=== PATIENT | female | born 1995 | race Caucasian/White ===

== ENCOUNTER 2018-12-10 10:08 | Emergency (ER) | payer OTHER ==
[2018-12-10 10:53] LABS: Absolute Lymphocytes (CBC) 1.3 K/uL (0.7-4.9); Absolute Monocytes 0.4 K/uL (0.1-1.3); Absolute Neutrophil 5.6 K/uL (1.8-8.0); Basophils % 0.4 % (0-1.3); Eosinophils % 0.7 % (0-4.4); Hematocrit 39.7 % (36.0-45.0); Lymphocytes % 17.8 % (15.3-44.8); MPV 9.2 fL (7.6-11.3); Monocytes % 4.9 % (3.3-12.3); RBC Red Blood Cell Count 4.73 M/uL (3.86-4.86)
[2018-12-10 10:57] LABS: Urine Blood TRACE (NEG); Urine Glucose NEGATIVE (NEG); Urine Protein NEGATIVE (NEG)
[2018-12-10] MEDS ORDERED: NA CHLORIDE 0.9% 1,000 ML ONE (10:57)
[2018-12-10] MEDS ORDERED: ONDANSETRON 4 MG/2 ML VIAL ONE (10:57)
[2018-12-10 11:14] LABS: ALT/SGPT 21 U/L (12-78); AST/SGOT 16 U/L (15-37); Albumin 3.6 g/dL (3.4-5.0); Alkaline Phosphatase 62 U/L (45-117); BUN Blood Urea Nitrogen 10 mg/dL (7-18); Bicarbonate 26 mmol/L (21-32); Bilirubin Direct 0.1 mg/dL (0-0.2); Bilirubin Total 0.3 mg/dL (0.2-1.0); Glucose Level 96 mg/dL (74-106); Lipase 111 U/L (73-393); Potassium 3.9 mmol/L (3.5-5.1); Protein, Total 7.2 g/dL (6.4-8.2); Sodium Level 141 mmol/L (136-145)
--- NOTE | 2018-12-10 12:09 | RAD REPORT ---
EXAM DESCRIPTION: CTAbdomen Pelvis W Contrast - 12/10/2018 11:56 am CLINICAL HISTORY: Abdominal pain. lower abdomen pain COMPARISON: No comparisons TECHNIQUE: Biphasic CT imaging of the abdomen and pelvis was performed with 100 ml non-ionic IV cont rast. All CT scans are performed using dose optimization technique as appropriate and may include automated exposure control or mA/KV adjustment according to patient size. FINDINGS: The lung bases are clear. The liver, spleen, pancreas, adrenal glands and kidneys are within normal limits. No bowel obstruction, free air, free fluid or abscess. The appendix is normal. No evidence of signi ficant lymphadenopathy. No suspicious bony findings. Trace pelvic free fluid is seen with possible with recent left-sided cys t rupture findings seen. IMPRESSION: No acute intra-abdominal or pelvic finding. Recent left-sided ovarian cyst rupture is possible.
--- NOTE | 2018-12-10 12:53 | EDPHYS ---
Physician Documentation [facility] Name: Nadine Sood Age: 23 yrs Sex: Female : 1995 Arrival Date: 12/10/2018 Time: 10:12 Bed 18 Private MD: ED Physician Milton Quesada HPI: 12/10 10:39 This 23 yrs old Female presents to ER via Ambulatory with complaints of cp Abdominal Pain. 10:40 The patient presents with abdominal pain in the lower abdomen. Onset: The cp symptoms/episode began/occurred last night. 10:40 The symptoms do not radiate. Associated signs and symptoms: Pertinent positives: cp nausea, Pertinent negatives: blood in stools, constipation, diarrhea, dysuria, fever, vaginal discharge, vomiting. The symptoms are described as crampy. Severity of pain: in the emergency department the pain is a 5 / 10. 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 - Social history:: Smoking status: Patient/guardian denies using tobacco, Patient/guardian denies using alcohol. - Ebola Screening: : Patient negative for fever greater than or equal to 101.5 degrees Fahrenheit, and additional compatible Ebola Virus Disease symptoms Patient denies exposure to infectious person Patient denies travel to an Ebola-affected area in the 21 days before illness onset. ROS: 10:45 Constitutional: Negative for body aches, chills, fever, poor PO intake. cp 10:45 Eyes: Negative for injury, pain, redness, and discharge. cp 10:45 ENT: Negative for drainage from ear(s), ear pain, sore throat, difficulty swallowing, difficulty handling secretions. 10:45 Cardiovascular: Negative for chest pain, palpitations. 10:45 Respiratory: Negative for cough, shortness of breath, wheezing. 10:45 Abdomen/GI: Positive for abdominal pain, nausea, Negative for vomiting, diarrhea, constipation, black/tarry stool, rectal bleeding. 10:45 Back: Negative for pain at rest, pain with movement, radiated pain. 10:45 : Negative for urinary symptoms, vaginal bleeding, vaginal discharge. 10:45 Skin: Negative for rash. 10:45 All other systems are negative. Exam: 10:50 Constitutional: The patient appears in no acute distress, alert, awake, non-toxic, well cp developed, well nourished. 10:50 Head/Face: Normocephalic, atraumatic. cp 10:50 Eyes: Periorbital structures: appear normal, Conjunctiva: normal, no exudate, no cp injection, Sclera: no appreciated abnormality, Lids and lashes: appear normal, bilaterally. 10:50 ENT: External ear(s): are unremarkable, Nose: is normal, Mouth: Lips: moist, Oral cp mucosa: pink and intact, moist, Posterior pharynx: is normal, airway is patent, no erythema, no exudate. 10:50 Chest/axilla: Inspection: normal. 10:50 Cardiovascular: Rate: normal, Rhythm: regular. 10:50 Respiratory: the patient does not display signs of respiratory distress, Respirations: normal, no use of accessory muscles, no retractions, no splinting, no tachypnea, labored breathing, is not present. 10:50 Abdomen/GI: Inspection: abdomen appears normal, Bowel sounds: active, all quadrants, Palpation: soft, in all quadrants, moderate abdominal tenderness, in the umbilical area, right lower quadrant and left lower quadrant, rebound tenderness, is not appreciated, involuntary guarding, is not appreciated. 10:50 Back: pain, is absent, ROM is normal. Vital Signs: 10:24 BP 125 / 67; Pulse 75; Resp 18; Temp 98.4(O); Pulse Ox 100% on R/A; Weight 63.5 kg; hj Height 5 ft. 5 in. (165.10 cm); Pain 6/10; 11:58 BP 126 / 69; Pulse 76; Resp 18; Pulse Ox 100% on R/A; hj 13:04 BP 110 / 72; Pulse 72; Resp 18; Pulse Ox 100% on R/A; hj 10:24 Body Mass Index 23.30 (63.50 kg, 165.10 cm) MDM: 10:25 Patient medically screened. cp 12:51 Data reviewed: vital signs, nurses notes, lab test result(s), radiologic studies, CT cp scan, and as a result, I will discharge patient. 12/10 10:32 Order name: Basic Metabolic Panel; Complete Time: 11:17 cp 12/10 11:17 Interpretation: Normal except: CL 108. cp 12/10 10:32 Order name: CBC with Diff; Complete Time: 10:57 cp 12/10 10:57 Interpretation: Normal except: JAMA% 76.2. cp 12/10 10:32 Order name: Creatinine for Radiology; Complete Time: 11:17 cp 12/10 10:32 Order name: Hepatic Function; Complete Time: 11:17 cp 12/10 11:17 Interpretation: Normal except: GLOB 3.6; A/G 1.0. cp 12/10 10:32 Order name: Lipase; Complete Time: 11:17 cp 12/10 10:33 Order name: Urine Dipstick--Ancillary (enter results); Complete Time: 10:59 ms 12/10 11:00 Interpretation: Normal except: UBLD TRACE. cp 12/10 10:32 Order name: IV Saline Lock; Complete Time: 10:45 cp 12/10 10:32 Order name: Labs collected and sent; Complete Time: 10:46 cp 12/10 10:32 Order name: Urine Dipstick-Ancillary (obtain specimen); Complete Time: 10:33 cp 12/10 10:33 Order name: Urine --Ancillary (enter results); Complete Time: 10:59 ms 12/10 10:59 Order name: CT Abd/Pelvis - W/Contrast: no oral contrast cp 12/10 12:46 Order name: CT EDMS 12/10 10:32 Order name: Urine Test (obtain specimen); Complete Time: 10:33 cp 12/10 12:46 Order name: PO challenge; Complete Time: 12:48 cp Administered Medications: 10:45 Drug: NS 0.9% 1000 ml Route: IV; Rate: 1 bolus; Site: right antecubital; hj 11:23 Follow up: IV Status: Completed infusion; IV Intake: 1000ml 10:45 Drug: Zofran 4 mg Route: IVP; Site: right antecubital; hj 11:00 Follow up: Response: No adverse reaction; Nausea is decreased hj Disposition: 13:07 Co-signature as Attending Physician, Milton Quesada MD I agree with the assessment and kdr plan of care. Disposition: 12/10/18 12:52 Discharged to Home. Impression: Lower abdominal pain, unspecified. - Condition is Stable. - Discharge Instructions: Abdominal Pain, Adult. - Prescriptions for Ibuprofen 800 mg Oral Tablet - take 1 tablet by ORAL route every 8 hours As needed take with food; 30 tablet. Zofran 4 mg Oral Tablet - take 1 tablet by ORAL route every 12 hours As needed; 20 tablet. - Medication Reconciliation Form, Thank You Letter, Antibiotic Education, Prescription Opioid Use form. - Follow up: Private Physician; When: 1 - 2 days; Reason: Worsening of condition. - Problem is new. - Symptoms have improved. Signatures: Dispatcher [employer] EDMS Milton Quesada MD MD kdr Finesse Ortez RN RN Julian Leal PA PA cp Corrections: (The following items were deleted from the chart) 13:05 12:52 12/10/2018 12:52 Discharged to Home. Impression: Lower abdominal pain, hj unspecified. Condition is Stable. Forms are Medication Reconciliation Form, Thank You Letter, Antibiotic Education, Prescription Opioid Use. Follow up: Private Physician; When: 1 - 2 days; Reason: Worsening of condition. Problem is new. Symptoms have improved. cp
--- NOTE | 2018-12-10 12:53 | ER ---
Nurse's Notes [facility] Name: Nadine Sood Age: 23 yrs Sex: Female : 1995 Arrival Date: 12/10/2018 Time: 10:12 Bed 18 Private MD: Diagnosis: Lower abdominal pain, unspecified Presentation: 12/10 10:21 Presenting complaint: Patient states: i had this abdominal cramps, pain that started hj last night, across my belly, pain now is 5/10; reports nausea, denies vomiting; denies diarrhea or constipation; denies fever and chills;. Transition of care: patient was not received from another setting of care. Onset of symptoms was December 10, 2018. Risk Assessment: Do you want to hurt yourself or someone else? Patient reports no desire to harm self or others. Initial Sepsis Screen: Does the patient meet any 2 criteria? No. Patient's initial sepsis screen is negative. Does the patient have a suspected source of infection? No. Patient's initial sepsis screen is negative. Care prior to arrival: None. 10:21 Method Of Arrival: Ambulatory 10:21 Acuity: JOYCE 3 Triage Assessment: 10:27 General: Appears in no apparent distress. uncomfortable, Behavior is calm, cooperative, hj appropriate for age. Pain: Complains of pain in abdomen. GI: Reports lower abdominal pain, nausea. 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 - Social history:: Smoking status: Patient/guardian denies using tobacco, Patient/guardian denies using alcohol. - Ebola Screening: : Patient negative for fever greater than or equal to 101.5 degrees Fahrenheit, and additional compatible Ebola Virus Disease symptoms Patient denies exposure to infectious person Patient denies travel to an Ebola-affected area in the 21 days before illness onset. Screenin:27 Abuse screen: Denies threats or abuse. Denies injuries from another. Nutritional hj screening: No deficits noted. Tuberculosis screening: No symptoms or risk factors identified. Fall Risk None identified. Assessment: 10:27 GI: Bowel sounds present X 4 quads. Abd is soft. hj 10:28 General: Appears in no apparent distress. uncomfortable, Behavior is calm, cooperative, hj appropriate for age. Pain: Complains of pain in abdomen. Neuro: Level of Consciousness is awake, alert, obeys commands, Oriented to person, place, time, situation, Appropriate for age. Cardiovascular: Capillary refill < 3 seconds Patient's skin is warm and dry. Respiratory: Airway is patent Respiratory effort is even, unlabored, Respiratory pattern is regular, symmetrical. : No signs and/or symptoms were reported regarding the genitourinary system. EENT: No signs and/or symptoms were reported regarding the EENT system. Derm: No signs and/or symptoms reported regarding the dermatologic system. Musculoskeletal: No signs and/or symptoms reported regarding the musculoskeletal system. 10:30 Reassessment: provider in room for eval; family in room;. hj 11:57 Reassessment: Patient and/or family updated on plan of care and expected duration. Pain hj level reassessed. Patient is alert, oriented x 3, equal unlabored respirations, skin warm/dry/pink. wheeled to CT:. Vital Signs: 10:24 BP 125 / 67; Pulse 75; Resp 18; Temp 98.4(O); Pulse Ox 100% on R/A; Weight 63.5 kg; hj Height 5 ft. 5 in. (165.10 cm); Pain 6/10; 11:58 BP 126 / 69; Pulse 76; Resp 18; Pulse Ox 100% on R/A; hj 13:04 BP 110 / 72; Pulse 72; Resp 18; Pulse Ox 100% on R/A; hj 10:24 Body Mass Index 23.30 (63.50 kg, 165.10 cm) hj ED Course: 10:12 Patient arrived in ED. rg4 10:15 Julian Clement PA is PHCP. cp 10:15 Milton Quesada MD is Attending Physician. cp 10:21 Finesse Ortez RN is Primary Nurse. hj 10:23 Triage completed. hj 10:27 Arm band placed on. hj 10:27 Patient has correct armband on for positive identification. Placed in gown. Bed in low hj position. Call light in reach. Side rails up X 1. Adult w/ patient. 10:47 Initial lab(s) drawn, by me, sent to lab. Inserted saline lock: 20 gauge in right em1 antecubital area, using aseptic technique. Blood collected. 13:04 No provider procedures requiring assistance completed. IV discontinued, intact, hj bleeding controlled, No redness/swelling at site. Pressure dressing applied. Administered Medications: 10:45 Drug: NS 0.9% 1000 ml Route: IV; Rate: 1 bolus; Site: right antecubital; hj 11:23 Follow up: IV Status: Completed infusion; IV Intake: 1000ml hj 10:45 Drug: Zofran 4 mg Route: IVP; Site: right antecubital; hj 11:00 Follow up: Response: No adverse reaction; Nausea is decreased hj Intake: 11:23 IV: 1000ml; Total: 1000ml. hj Outcome: 12:52 Discharge ordered by MD. kwabena 13:04 Discharged to home ambulatory, with family. hj 13:04 Condition: stable 13:04 Discharge instructions given to patient, family, Instructed on discharge instructions, follow up and referral plans. medication usage, Demonstrated understanding of instructions, follow-up care, medications, Prescriptions given X 2. 13:05 Patient left the ED. Signatures: Canelo Ha em1 Finesse Ortez RN RN hj Julian Clement PA PA cp Garcia, Rubi rg4
--- OUTSIDE RECORDS SUMMARY | 2018-12-10 14:38 | XMS REPORT | Continuity of Care Document ---
:1995 Author Organization Interface Problems Problem Status Onset Date Classification Date Comments Source Reported Medications Medication Details Route Status Patient Ordering Order Source Instructions Provider Date Terbinafine 1 appl, Active hydrochloride 10 TOP, BID, X 019 Medical MG/ML Topical 7 day, # 30 Group Cream gm, 0 Refill(s), [id number] {7 (Ethinyl 1 tab, PO, Active MH Estradiol 0.035 Daily, # 28 018 Medical MG / tab, 0 Group norgestimate Refill(s), 0.18 MG Oral Pharmacy: Tablet) / [facility] Estradiol 0.035 MG / norgestimate 0.215 MG Oral Tablet) / 7 (Ethinyl Estradiol 0.035 MG / norgestimate 0.25 MG Oral Tablet) / 7 (Inert Ingredients 1 MG Oral Tablet) } Pack [Tr Azithromycin 5 See Active Day Dose Pack Instruction 018 Medical 250 mg oral s, Take 2 Group tablet tablets by mouth the first day then 1 tablet by mouth days 2-5., X 5 day, # 6 tab, 0 Refill(s), Pharmacy: [facility] [place] Fluticasone 2 spray, Active propionate 0.05 NASAL, 018 Medical MG/ACTUAT Daily, in Group Metered Dose each Nasal Hooks nostril, # [Flonase] 16 gm, 1 Refill(s), Pharmacy: [facility] [place] Retinol See Active Instruction 018 Medical s, use as Group directed on bottle, 0 Refill(s) Ibuprofen 200 MG 600 mg=3 Active Oral Tablet tab, PO, 018 Medical Q6H, prn Group pain and/or fever, 0 Refill(s) Amoxicillin 500 1 tab, PO, No Longer MG / Clavulanate Q12H, X 10 Active 018 Medical 125 MG Oral day, # 20 Group Tablet tab, 0 [Augmentin Refill(s), 500-mg] Pharmacy: [facility] [place] Fink 1 tab, PO, Active Daily, 0 018 Medical Refill(s) Group Allergies, Adverse Reactions, Alerts Substance Category Reaction Severity Reaction Status Date Comments Source type Reported sulfa drugs Assertion Drug Active allergy Medical Group tetracycline Assertion MO^Modera Drug Active topical te allergy Medical Group Immunizations Immunization Date Given Site Status Last Updated Comments Source Results Order Results Value Reference Date Interpretation Comments Source Name Range Vital Signs Vital Sign Value Date Comments Source Systolic (mm Hg) 134 11/13/2018 Medical Group Diastolic (mm Hg) 91 11/13/2018 [facility] Temperature Oral (F) 98.2 F 11/13/2018 Medical Group Heart Rate 87 11/13/2018 Medical Group Weight 62.472 11/13/2018 Medical Group Weight 65 02/09/2018 Medical Group Systolic (mm Hg) 110 02/09/2018 Medical Group Diastolic (mm Hg) 63 02/09/2018 Medical Group Temperature Oral (F) 98.6 F 02/09/2018 Medical Group Heart Rate 73 02/09/2018 Medical Group Weight 61.364 10/27/2017 Medical Group BMI Calculated 22.51 10/27/2017 Medical Group Height 165.1 cm 10/27/2017 Medical Group Temperature Oral (F) 98.2 F 10/27/2017 Medical Group Systolic (mm Hg) 115 10/27/2017 Medical Group Diastolic (mm Hg) 73 10/27/2017 Medical Group Heart Rate 75 10/27/2017 Medical Group Temperature Oral (F) 98.4 F 10/21/2017 Medical Group Heart Rate 88 10/21/2017 Medical Group Systolic (mm Hg) 120 10/21/2017 Medical Group Diastolic (mm Hg) 74 10/21/2017 Medical Group Height 165.1 cm 10/21/2017 Medical Group Weight 62.273 10/21/2017 Medical Group BMI Calculated 22.85 10/21/2017 Medical Group Weight 60.227 08/20/2017 Medical Group Heart Rate 90 08/20/2017 Medical Group Temperature Oral (F) 98.0 F 08/20/2017 Medical Group Systolic (mm Hg) 106 08/20/2017 Medical Group Diastolic (mm Hg) 73 08/20/2017 Medical Group Encounters Location Location Encounter Encounter Reason Attending ADM DC Status Source Details Type Number For Provider Date Date Visit Outpatient [id number] TYRONE08/20 [facility] [place] [facility] Outpatient [id number] [place] 08/20 08/21 [facility] Alex /2017 [facility] [place] Outpatient [id number] TYRONE10/21 [facility] [id number] [place] 10/21 10/22 [facility] Alex /2017 [facility] [place] Outpatient [id number] TYRONE 10/27 [facility] [facility] Out[facility] [id number] [place] 10/27 [facility] Out[facility] [id number] NURSE VISIT 02/09 [facility] [id number] NURSE VISIT 02/09 02/10 [facility] /2017 [facility] [place] [facility] Phone [id number] 02/16 02/18 [facility] /2017 [facility] [place]patient [id number] [place] 11/13 [facility] [place] [facility] [id number] [place] 11/13 11/14 [facility] [place] /2018 [facility] [place] Outpatient [id number] [place] 11/27 [facility] [place] [facility] [id number] [place] 11/27 11/27 [facility] [place] /2018 [facility] [place] Procedures Procedure Code Date Perfomer Comments Source Removal<sup>1</s [id number] breast tumor Medical up> 2013 Group
--- OUTSIDE RECORDS SUMMARY | 2018-12-10 14:39 | XMS REPORT | Summary of Care ---
:1995 Author Organization [facility] Address [address] [place] [address]- Encounter HQ Alvaro(FIN) [id number] Date(s): 10/27/17 - 10/27/17 [facility] [address] [place] [phone] Discharge Disposition: Home or Self Care Attending Physician: Angela Johnson DO Vital Signs Most recent to oldest [Reference Range]: 1 Height 165.1 cm (10/27/17 3:10 PM) Temperature Oral [96.4-99.1 DegF] 98.2 DegF (10/27/17 3:10 PM) Blood Pressure [90-140/60-90 mmHg] 115/73 mmHg (10/27/17 3:10 PM) Peripheral Pulse Rate [60-100 bpm] 75 bpm (10/27/17 3:10 PM) Weight 61.364 kg (10/27/17 3:10 PM) Body Mass Index 22.51 m2 (10/27/17 3:10 PM) Problem List No data available for this section Allergies, Adverse Reactions, Alerts Substance Reaction Severity Status sulfa drugs Active Medications Azithromycin 5 Day Dose Pack 250 mg oral tablet See Instructions, Take 2 tablets by mouth the first day then 1 tablet by mouth days 2-5., X 5 day, #6 tab, 0 Refill(s), Pharmacy: [facility] Start Date: 10/27/17 Stop Date: 11/01/17 Status: Ordered Results No data available for this section Immunizations No data available for this section Procedures Procedure Date Related Diagnosis Body Site Status Removal1 Completed 1breast tumor 2013 Social History Social History Type Response Smoking Status Never smoker; Exposure to Tobacco Smoke None; Cigarette Smoking Last 365 Days No; Reg Smoking Cessation Counseling No entered on: 10/27/17 Assessment and Plan No data available for this section
--- OUTSIDE RECORDS SUMMARY | 2018-12-10 14:39 | XMS REPORT | Summary of Care ---
:1995 Author Organization [facility] Address [address] [place] [address]- Encounter HQ Marenntr_gaby(FIN) [id number] Date(s): 02/16/18 - 02/17/18 [facility] [address] [place] [address] [phone] Vital Signs No data available for this section Problem List No data available for this section Allergies, Adverse Reactions, Alerts Substance Reaction Severity Status sulfa drugs Active Medications TriNessa oral tablet 1 tab, PO, Daily, # 28 tab, 0 Refill(s), Pharmacy: [facility]/pharmacy #[id number] Start Date: 02/17/18 Stop Date: 03/17/18 Status: Ordered Results No data available for [...]
--- OUTSIDE RECORDS SUMMARY | 2018-12-10 14:39 | XMS REPORT | Summary of Care ---
:1995 Author Organization [facility] Address [address] [place] [address]- Encounter HQ Encntr_alirobin(FIN) [id number] Date(s): 11/27/18 - 11/27/18 [facility] [address] 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 Vital Signs No data available for this section Problem List No data available for this section Allergies, Adverse Reactions, Alerts Substance Reaction Severity Status sulfa drugs Active tetracycline topical MO^Moderate Active Medications No data available for this section Results No data available for this section Immunizations No data available for this section Procedures Procedure Date Related Diagnosis Body Site Status Removal1 Completed 1breast tumor 2013 Social History Social History Type Response Smoking Status Never smoker; Exposure to Tobacco Smoke None; Cigarette Smoking Last 365 Days No; Reg Smoking Cessation Counseling No entered on: 11/13/18 Assessment and Plan No data available for this section
--- OUTSIDE RECORDS SUMMARY | 2018-12-10 14:39 | XMS REPORT | Summary of Care ---
:1995 Author Organization [facility] Address [address] [place] [address]- Encounter HQ Kiko_gaby(FIN) [id number] Date(s): 02/09/18 - 02/09/18 [facility] [address] [place] [address] [phone] Discharge Disposition: Home or Self Care Attending Physician: VISIT, NURSE [facility] Vital Signs Most recent to oldest [Reference Range]: 1 Temperature Oral [96.4-99.1 DegF] 98.6 DegF (02/09/18 10:42 AM) Blood Pressure [90-140/60-90 mmHg] 110/63 mmHg (02/09/18 10:42 AM) Peripheral Pulse Rate [60-100 bpm] 73 bpm (02/09/18 10:42 AM) Weight 65 kg (02/09/18 10:42 AM) Problem List No data available for this section Allergies, Adverse Reactions, Alerts Substance Reaction Severity Status sulfa drugs Active Medications No data available for this [...]
--- OUTSIDE RECORDS SUMMARY | 2018-12-10 14:39 | XMS REPORT | Summary of Care ---
:[address] [facility] Address [address] [place] [address]- Encounter HQ Alvaro(SABIHA) [id number] Date(s): 08/20/17 - 08/20/17 [facility] [address] [place] [phone] Discharge Disposition: Home or Self Care Attending Physician: Angela Johnson DO Vital Signs Most recent to oldest [Reference Range]: 1 Temperature Oral [96.4-99.1 DegF] 98.0 DegF (08/20/17 2:32 PM) Blood Pressure [90-140/60-90 mmHg] 106/73 mmHg (08/20/17 2:32 PM) Peripheral Pulse Rate [60-100 bpm] 90 bpm (08/20/17 2:32 PM) Weight 60.227 kg (08/20/17 2:32 PM) Problem List No data available for this section Allergies, Adverse Reactions, Alerts Substance Reaction Severity Status sulfa drugs Active Medications Augmentin 500 mg oral tablet 1 tab, PO, Q12H, X 10 day, # 20 tab, 0 Refill(s), Pharmacy: [facility] [place] Start Date: 08/20/17 Stop Date: 08/30/17 Status: CompletedTriNessa 1 tab, PO, Daily, 0 Refill(s) Start Date: 08/20/17 Status: Ordered Results No data available for [...]
--- OUTSIDE RECORDS SUMMARY | 2018-12-10 14:39 | XMS REPORT | Summary of Care ---
:1995 Author Organization [facility] Address [address] [place] [address] Encounter HQ Alvaro(FIN) [id number] Date(s): 10/21/17 - 10/21/17 [facility] [address] [place] [address] [phone] Discharge Disposition: Home or Self Care Attending Physician: Angela Johnson DO Vital Signs Most recent to oldest [Reference Range]: 1 Height 165.1 cm (10/21/17 2:30 PM) Temperature Oral [96.4-99.1 DegF] 98.4 DegF (10/21/17 2:30 PM) Blood Pressure [90-140/60-90 mmHg] 120/74 mmHg (10/21/17 2:30 PM) Peripheral Pulse Rate [60-100 bpm] 88 bpm (10/21/17 2:30 PM) Weight 62.273 kg (10/21/17 2:30 PM) Body Mass Index 22.85 m2 (10/21/17 2:30 PM) Problem List No data available for this section Allergies, Adverse Reactions, Alerts Substance Reaction Severity Status sulfa drugs Active Medications Flonase 0.05 mg/inh nasal spray 2 spray, NASAL, Daily, in each nostril, # 16 gm, 1 Refill(s), Pharmacy: [facility] [place] Start Date: 10/21/17 Status: Orderedibuprofen 200 mg oral tablet 600 mg=3 tab, PO, Q6H, prn pain and/or fever, 0 Refill(s) Start Date: 10/21/17 Status: OrderedRetinol See Instructions, use as directed on bottle, 0 Refill(s) Start Date: 10/21/17 Status: Ordered Results No data available for this section Immunizations No data available for this section Procedures Procedure Date Related Diagnosis Body Site Status Removal1 Completed 1breast tumor 2013 Social History Social History Type Response Smoking Status Never smoker; Exposure to Tobacco Smoke None; Cigarette Smoking Last 365 Days No; Reg Smoking Cessation Counseling No entered on: 10/21/17 Assessment and Plan No data available for this section
--- OUTSIDE RECORDS SUMMARY | 2018-12-10 14:39 | XMS REPORT | Summary of Care ---
:1995 Author Organization [facility] Address [address] [place] [address]- Encounter HQ Kiko_gaby(SABIHA) [id number] Date(s): 11/13/18 - 11/13/18 [facility] [address] [place] [id number]- [phone] Discharge Disposition: Home or Self Care Attending Physician: Yolanda Burnett IN[employer]O [employer]ER CLOTH Vital Signs Most recent to oldest [Reference Range]: 1 Temperature Oral [96.4-99.1 DegF] 98.2 DegF (11/13/18 1:26 PM) Blood Pressure [90-140/60-90 mmHg] 134/91 mmHg (11/13/18 1:26 PM) Peripheral Pulse Rate [60-100 bpm] 87 bpm (11/13/18 1:26 PM) Weight 62.472 kg (11/13/18 1:26 PM) Problem List No data available for this section Allergies, Adverse Reactions, Alerts Substance Reaction Severity Status sulfa drugs Active tetracycline topical MO^Moderate Active Medications terbinafine topical 1% cream 1 appl, TOP, BID, X 7 day, # 30 gm, 0 Refill(s), Pharmacy: [id number] Start Date: 11/13/18 Stop Date: 11/20/18 Status: Ordered Results No data available for [...]
--- OUTSIDE RECORDS SUMMARY | 2018-12-10 14:39 | XMS REPORT | Summary of Care ---
:1995 Author Organization [facility] Address [address] [place] [address]- Encounter HQ Alvaro(FIN) [id number] Date(s): 10/21/17 - 10/21/17 [facility] [address] [place] [address] [phone] Discharge Disposition: Home or Self Care Attending [...] nostril, # 16 gm, 1 Refill(s), Pharmacy: [facility] [place] Start Date: 10/21/17 Status: Orderedibuprofen 200 mg [...]
--- OUTSIDE RECORDS SUMMARY | 2018-12-10 14:39 | XMS REPORT | Summary of Care ---
:1995 Author Organization [facility] Address [address] [place] [address]- Encounter HQ Kiko_gaby(FIN) [id number] Date(s): 02/09/18 - 02/09/18 [facility] [address] [place] [place] [address] [phone] Discharge Disposition: Home or Self Care Attending [...]
== END 2018-12-10 13:05 | disposition home or self-care (01) ==
LOC: ER 10:08
DX: R10.30 Lower abdominal pain, unspecified (principal); Z88.2 Allergy status to sulfonamides; Z88.8 Allergy status to other drugs, medicaments and biological substances
CPT/HCPCS: 36415; 74177; 80048; 80076; 81003; 81025; 83690; 85025; 96361; 96374; 99284; J2405; J7030; Q9967

== ENCOUNTER 2019-02-05 21:33 | Emergency (ER) | payer OTHER ==
--- OUTSIDE RECORDS SUMMARY | 2019-02-05 21:35 | XMS REPORT | Continuity of Care Document ---
:1995 Author Organization [facility] Care Team Providers Name Role Phone [facility] Unavailable Unavailable Problems No Data Provided for This Section Medications Medication Details Route Status Patient Ordering Order Source Instructions Provider Date Terbinafine 1 appl, Active hydrochloride 10 TOP, BID, X 019 Medical MG/ML Topical 7 day, # 30 Group Cream gm, 0 Refill(s), [facility]: [id number] {7 (Ethinyl 1 tab, PO, Active Estradiol 0.035 Daily, # 28 018 Medical [...] day, # 6 tab, 0 Refill(s), Pharmacy: [facility] [place] Fluticasone 2 spray, Active propionate 0.05 NASAL, 018 Medical MG/ACTUAT Daily, in Group Metered Dose each Nasal [place] nostril, # [Flonase] 16 gm, 1 Refill(s), Pharmacy: [facility] [place] Retinol See Active Instruction 018 Medical s, [...] Tablet tab, 0 [Augmentin Refill(s), 500-mg] Pharmacy: [facility] [place] Fink 1 tab, PO, Active Daily, 0 018 Medical Refill(s) Group Allergies, Adverse Reactions, Alerts Substance Category Reaction Severity Reaction Status Date Comments Source type Reported sulfa drugs Assertion Drug Active allergy Medical Group tetracycline Assertion MO^Modera Drug Active topical te allergy Medical Group Immunizations No Data Provided for This Section Results No Data Provided for This Section Pathology Reports No Data Provided for This Section Diagnostic Reports No Data Provided for This Section Consultation Notes No Data Provided for This Section Discharge Summaries No Data Provided for This Section History and Physicals No Data Provided for This Section Vital Signs Vital Sign Value Date Comments [...] Number For Provider Date Date Visit Outpatient [id number] TYRONE 08/20 [facility] [place] [facility] Outpatient [id number] [place] 08/20 08[facility]21 [facility] [place] [facility] [id number] [place]ONE 10/21 [facility] [place] [facility] Outpatient [id number] [place] 10/21 10/22 [facility] [place] [facility] [id number] TYRONE 10/27 [facility] [place] [facility] Outpatient [id number] [place] 10/27 10/28 [facility] [place] Outpatient [id number] NURSE VISIT 02/09 [facility] [place] [facility] Outpatient [id number] NURSE VISIT 02/09 02/10 [facility] [place] [facility] Phone [id number] 02/16 02/18 [facility] [place] [id number] [place] 11/13 [facility] [place] [facility] Outpatient [id number] [place] 11/13 11/14 [facility] [place] [facility] [place] Outpatient [id number] [place] 11/27 [facility] [place] [facility] [id number] [place] 11/27 11/27 [facility]-Reg e [place] [facility] [place] Procedures Procedure Code Date Perfomer Comments Source Removal<sup>1</s [id number] breast tumor Medical up> 2012 Group Assessment and Plan No Data Provided for This Section Plan of Care No Data Provided for This Section Social History Social History Date Source Social History TypeResponse 11/13/2018 Medical Group Smoking Status Never smoker; Exposure to Tobacco Smoke None; Cigarette Smoking Last 365 Days No; Reg Smoking Cessation Counseling No entered on: 11/13/18 Family History No Data Provided for This Section Advance Directives No Data Provided for This Section Functional Status No Data Provided for This Section
[2019-02-05] MEDS ORDERED: ONDANSETRON 4 MG/2 ML VIAL ONE (22:05)
[2019-02-05] MEDS ORDERED: NA CHLORIDE 0.9% 1,000 ML ONE (22:05)
[2019-02-05] MEDS ORDERED: MORPHINE 4 MG/ML SYR ONE (22:05)
[2019-02-05 22:17] LABS: Absolute Lymphocytes (CBC) 2.6 K/uL (0.7-4.9); Basophils % 0.2 % (0-1.3); Lymphocytes % 17.8 % (15.3-44.8); MPV 9.2 fL (7.6-11.3); RBC Red Blood Cell Count 4.67 M/uL (3.86-4.86)
[2019-02-05 22:29] LABS: Albumin 3.9 g/dL (3.4-5.0); Bilirubin Direct 0.1 mg/dL (0-0.2); Bilirubin Total 0.4 mg/dL (0.2-1.0); Potassium 3.2 mmol/L (3.5-5.1); Protein, Total 7.7 g/dL (6.4-8.2)
[2019-02-05 23:40] LABS: Urine Blood TRACE (NEG); Urine Glucose NEGATIVE (NEG); Urine Protein NEGATIVE (NEG)
--- NOTE | 2019-02-06 00:26 | ER ---
Nurse's Notes [facility] Name: Nadine Sood Age: 23 yrs Sex: Female : 1995 Arrival Date: 02/05/2019 Time: 21:37 Bed 15 Private MD: Diagnosis: Hemorrhagic ovarian cyst Presentation: 02/05 21:36 Presenting complaint: Patient states: RLQ abdominal pain that started this morning, but aj1 got severe an hour and a half ago. Reports nausea. Denies V/D. Denies fever. Transition of care: patient was not received from another setting of care. Onset of symptoms was February 05, 2019. Risk Assessment: Do you want to hurt yourself or someone else? Patient reports no desire to harm self or others. Initial Sepsis Screen: Does the patient meet any 2 criteria? HR > 90 bpm. No. Patient's initial sepsis screen is negative. Does the patient have a suspected source of infection? Yes: Acute abdominal pain. Care prior to arrival: None. 21:36 Method Of Arrival: Wheelchair aj 21:36 Acuity: JOYCE 3 aj1 Triage Assessment: 21:38 General: Appears uncomfortable, Behavior is cooperative, anxious, crying. Pain: aj1 Complains of pain in right lower quadrant Pain currently is 10 out of 10 on a pain scale. Neuro: Level of Consciousness is awake, alert, obeys commands, Oriented to person, place, time, situation. Cardiovascular: Patient's skin is warm and dry. Respiratory: Airway is patent Respiratory effort is even, unlabored, Respiratory pattern is regular, symmetrical. GI: Reports lower abdominal pain, nausea, Patient currently denies diarrhea, vomiting. 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 - Social history:: Smoking status: Patient/guardian denies using tobacco. - Ebola Screening: : Patient denies travel to an Ebola-affected area in the 21 days before illness onset. - Family history:: not pertinent. - Hospitalizations: : No recent hospitalization is reported. Screenin:38 Abuse screen: Denies threats or abuse. Nutritional screening: No deficits noted. tr5 Tuberculosis screening: No symptoms or risk factors identified. Fall Risk None identified. No fall in past 12 months (0 pts). No secondary diagnosis (0 pts). IV access (20 points). Ambulatory Aid- None/Bed Rest/Nurse Assist (0 pts). Gait- Normal/Bed Rest/Wheelchair (0 pts) Mental Status- Oriented to own ability (0 pts). Total Parmar Fall Scale indicates No Risk (0-24 pts). Assessment: 21:38 General: Appears uncomfortable, Behavior is appropriate for age, crying. Pain: tr5 Complains of pain in right lower quadrant and left lower quadrant Pain currently is 9 out of 10 on a pain scale. Quality of pain is described as aching, crampy, Is continuous, Alleviated by nothing. Neuro: Level of Consciousness is awake, alert, obeys commands, Oriented to person, place, time, Pediatric Acute Care Unit Nurse are equal bilaterally Moves all extremities. Cardiovascular: Heart tones present Bruits absent Capillary refill < 3 seconds Pulses are all present. Edema is absent. Respiratory: Airway is patent Trachea midline Respiratory effort is even, unlabored, Respiratory pattern is regular, symmetrical, Breath sounds are clear bilaterally. GI: Bowel sounds present X 4 quads. Abdomen is tender to palpation in right lower quadrant and left lower quadrant. GI: Reports nausea. : No signs and/or symptoms were reported regarding the genitourinary system. EENT: No signs and/or symptoms were reported regarding the EENT system. Derm: Skin is intact, is healthy with good turgor, Skin is dry, Skin is pink, warm \T\ dry. Musculoskeletal: Capillary refill < 3 seconds, Range of motion: intact in all extremities. 22:30 Reassessment: Patient and/or family updated on plan of care and expected duration. Pain tr5 level reassessed. Patient is alert, oriented x 3, equal unlabored respirations, skin warm/dry/pink. Patient states symptoms have improved. 02/06 00:37 Reassessment: Patient is alert, oriented x 3, equal unlabored respirations, skin bb warm/dry/pink. pt states she is feeling better, IV site intact with no erythema or edema noted. Pt verbalized understanding of and agrees to plan of care discharge instructions given pt ambulated with steady gait to exit accompanied by spouse. 01:03 Reassessment: Patient appears in no apparent distress at this time. Patient is alert, tr5 oriented x 3, equal unlabored respirations, skin warm/dry/pink. Patient states feeling better. Vital Signs: 02/05 21:38 BP 94 / 79; Pulse 99; Resp 20; Temp 98.4; Pulse Ox 100% on R/A; Weight 61.23 kg (R); aj1 Height 5 ft. 5 in. (165.10 cm) (R); Pain 10/10; 22:30 BP 116 / 57; Pulse 75; Resp 16; Pulse Ox 100% on R/A; tr5 23:22 BP 117 / 81; Pulse 98; Resp 16; Pulse Ox 94% on R/A; tr5 02/06 00:38 BP 104 / 62; Pulse 99; Resp 16 S; Pulse Ox 98% on R/A; bb 01:03 BP 108 / 70; Pulse 87; Temp 99; Pulse Ox 100% on R/A; tr5 02/05 21:38 Body Mass Index 22.46 (61.23 kg, 165.10 cm) aj1 00:38 pt drinking ice water will check temp in 5 minutes bb ED Course: 02/05 21:37 Patient arrived in ED. mr 21:37 Triage completed. aj1 21:38 Arm band placed on Patient placed in an exam room. aj1 21:38 Patient has correct armband on for positive identification. Bed in low position. Call tr5 light in reach. 21:39 Santy Forman MD is Attending Physician. rn 21:43 Radiology exam delayed due to lab results not completed at this time. (BUN/Creatinine) vm2 test not completed at this time. 21:45 Royce Menon, AVRIL is Primary Nurse. tr5 21:45 Pulse ox on. NIBP on. Door closed. Noise minimized. Warm blanket given. tr5 21:50 Assisted to bathroom. tr5 21:54 Inserted saline lock: 20 gauge in left antecubital area, using aseptic technique. Blood jb5 collected. 21:55 Initial lab(s) drawn, by ED staff. tr5 22:00 Urine collected: clean catch specimen, clear. tr5 22:35 Awaiting lab results, Awaiting radiology results. tr5 22:[address] Scan. Patient moved to CT. tr5 22:45 CT completed. Patient tolerated procedure well. Patient moved back from CT. 22:53 Awaiting radiology results. tr5 22:56 CT Abd/Pelvis - IV Contrast Only In Process Unspecified. EDHI 02/06 01:04 No provider procedures requiring assistance completed. IV discontinued. tr5 Administered Medications: 02/05 22:05 Drug: morphine 4 mg Route: IVP; Site: left antecubital; tr5 22:05 Drug: Zofran 4 mg Route: IVP; Site: left antecubital; tr5 22:05 Drug: NS 0.9% 1000 ml Route: IV; Rate: 1000 ml; Site: left antecubital; tr5 02/06 00:36 Drug: [place] 10 mg-325 mg 1 tabs Route: PO; tr5 Outcome: 00:24 Discharge ordered by . rn 01:04 Discharged to home ambulatory. tr5 01:04 Condition: stable 01:04 Discharge instructions given to patient, Instructed on discharge instructions, follow up and referral plans. medication usage, Demonstrated understanding of instructions, follow-up care, medications, Prescriptions given X 1. 01:59 Patient left the ED. tr5 Signatures: Dispatcher [employer] EDHI Madison Valentino, RN RN david AlvarezaOksana DickDeepak Blanca Alarcon RN RN bb Nieto, Roman, MD MD rn Broussard, Jennifer jb5 McGuire, Victoria Royce Rock RN RN tr5 Corrections: (The following items were deleted from the chart) 02/05 22:32 12:38 Abuse screen: Denies threats or abuse. tr5 tr5 :32 12:38 Nutritional screening: No deficits noted. tr5 tr5 :32 12:38 Tuberculosis screening: No symptoms or risk factors identified. tr5 tr5 :32 12:38 Fall Risk None identified. No fall in past 12 months (0 pts). No secondary tr5 diagnosis (0 pts). IV access (20 points). Ambulatory Aid- None/Bed Rest/Nurse Assist (0 pts). Gait- Normal/Bed Rest/Wheelchair (0 pts) Mental Status- Oriented to own ability (0 pts). Total Parmar Fall Scale indicates No Risk (0-24 pts). tr5
--- NOTE | 2019-02-06 00:28 | EDPHYS ---
Physician Documentation [facility] Name: Nadine Sood Age: 23 yrs Sex: Female : 1995 Arrival Date: 02/05/2019 Time: 21:37 Bed 15 Private MD: ED Physician Santy Forman HPI: 02/05 21:45 This 23 yrs old Female presents to ER via Wheelchair with complaints of rn Abdominal Pain. 21:45 The patient presents with abdominal pain right lower quadrant. Onset: The rn symptoms/episode began/occurred this morning. The symptoms do not radiate. Associated signs and symptoms: Pertinent positives: anorexia, fever, Pertinent negatives: nausea and vomiting, blood in stools, chest pain, constipation, diarrhea, dysuria, vaginal discharge. Modifying factors: The symptoms are alleviated by nothing, the symptoms are aggravated by movement, touching the area. Severity of pain: At its worst the pain was moderate in the emergency department the pain is unchanged. The patient has experienced a previous episode. Reports similar pain 2 months ago, this time is worse, + RLQ abd pain, began this AM, + anorexia and 99 temp, no vomiting/diarrhea, takes control, no vaginal symptoms, worse with car ride and movement. . 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 - Social history:: Smoking status: Patient/guardian denies using tobacco. - Ebola Screening: : Patient denies travel to an Ebola-affected area in the 21 days before illness onset. - Family history:: not pertinent. - Hospitalizations: : No recent hospitalization is reported. ROS: 21:45 Constitutional: Negative for chills, and weight loss, Eyes: Negative for injury, pain, rn redness, and discharge, Neck: Negative for injury, pain, and swelling, Cardiovascular: Negative for chest pain, palpitations, and edema, Respiratory: Negative for shortness of breath, cough, wheezing, and pleuritic chest pain, Abdomen/GI: + abd pain Back: Negative for injury and pain, : Negative for injury, bleeding, discharge, and swelling, MS/Extremity: Negative for injury and deformity, Skin: Negative for injury, rash, and discoloration, Neuro: Negative for headache, weakness, numbness, tingling, and seizure. Exam: 21:45 Constitutional: This is a well developed, well nourished patient who is awake, alert, rn appears uncomfortable Head/Face: Normocephalic, atraumatic. Eyes: Pupils equal round and reactive to light, extra-ocular motions intact. Lids and lashes normal. Conjunctiva and sclera are non-icteric and not injected. Cornea within normal limits. Periorbital areas with no swelling, redness, or edema. ENT: mmm Cardiovascular: Regular rate and rhythm. No pulse deficits. Respiratory: mild tachypnea, tearful Abdomen/GI: soft, + tender periumbilical and RLQ with guarding, no peritoneal signs. Skin: Warm, dry with normal turgor. Normal color with no rashes, no lesions, and no evidence of cellulitis. MS/ Extremity: Pulses equal, no cyanosis. Neurovascular intact. Full, normal range of motion. Equal circumference. Neuro: Awake and alert, GCS 15, oriented to person, place, time, and situation. Cranial nerves II-XII grossly intact. Motor strength 5/5 in all extremities. Sensory grossly intact. Cerebellar exam normal. Normal gait. Vital Signs: 21:38 BP 94 / 79; Pulse 99; Resp 20; Temp 98.4; Pulse Ox 100% on R/A; Weight 61.23 kg (R); aj1 Height 5 ft. 5 in. (165.10 cm) (R); Pain 10/10; 22:30 BP 116 / 57; Pulse 75; Resp 16; Pulse Ox 100% on R/A; tr5 23:22 BP 117 / 81; Pulse 98; Resp 16; Pulse Ox 94% on R/A; tr5 02/06 00:38 BP 104 / 62; Pulse 99; Resp 16 S; Pulse Ox 98% on R/A; bb 01:03 BP 108 / 70; Pulse 87; Temp 99; Pulse Ox 100% on R/A; tr5 02/05 21:38 Body Mass Index 22.46 (61.23 kg, 165.10 cm) aj1 00:38 pt drinking ice water will check temp in 5 minutes bb MDM: 02/05 21:39 Patient medically screened. rn 02/06 00:21 Differential diagnosis: appendicitis, Ectopic , non-specific abd pain, ovarian rn cyst, ruptured ovarian cyst. Data reviewed: vital signs, nurses notes, lab test result(s), radiologic studies, CT scan, and as a result, I will discharge patient. Counseling: I had a detailed discussion with the patient and/or guardian regarding: the historical points, exam findings, and any diagnostic results supporting the discharge/admit diagnosis, lab results, radiology results, the need for outpatient follow up, to return to the emergency department if symptoms worsen or persist or if there are any questions or concerns that arise at home. Response to treatment: the patient's symptoms have markedly improved after treatment, and as a result, I will discharge patient. 00:22 Special discussion: I discussed with the patient/guardian in detail that at this point rn there is no indication for admission to the hospital. It is understood, however, that if the symptoms persist or worsen the patient needs to return immediately for re-evaluation. ED course: CT abdomen shows left ruptured ovarian cyst, no appendicitis or other acute finding. Patient is late in her cycle and this also happened to her 2 cycles ago, and finding is consistent with acute onset of pain. Will dc home with pain meds and [employer] f/u. . 02/05 21:40 Order name: Basic Metabolic Panel; Complete Time: 22:41 rn 02/05 21:40 Order name: CBC with Diff; Complete Time: 22:41 rn 02/05 21:40 Order name: Creatinine for Radiology; Complete Time: 22:41 rn 02/05 21:40 Order name: Hepatic Function; Complete Time: 22:41 rn 02/05 21:40 Order name: Lipase; Complete Time: 22:41 rn 02/05 21:40 Order name: IV Saline Lock; Complete Time: 22:06 rn 02/05 21:40 Order name: CT Abd/Pelvis - IV Contrast Only rn 02/05 22:11 Order name: Urine Dipstick--Ancillary (enter results); Complete Time: 00:22 cm6 02/05 22:11 Order name: Urine --Ancillary (enter results); Complete Time: 00:22 cm6 02/05 21:40 Order name: Labs collected and sent; Complete Time: 22:06 rn 02/05 21:40 Order name: Urine Test (obtain specimen); Complete Time: 22:05 rn 02/05 21:40 Order name: Urine Dipstick-Ancillary (obtain specimen); Complete Time: 22:06 rn 02/05 21:44 Order name: NPO; Complete Time: 21:45 rn Administered Medications: 02/05 22:05 Drug: morphine 4 mg Route: IVP; Site: left antecubital; tr5 22:05 Drug: Zofran 4 mg Route: IVP; Site: left antecubital; tr5 22:05 Drug: NS 0.9% 1000 ml Route: IV; Rate: 1000 ml; Site: left antecubital; tr5 02/06 00:36 Drug: [place] 10 mg-325 mg 1 tabs Route: PO; tr5 Disposition: 02/06/19 00:24 Discharged to Home. Impression: Hemorrhagic ovarian cyst. - Condition is Stable. - Discharge Instructions: Ovarian Cyst. - Prescriptions for Tylenol- Codeine #3 300-30 mg Oral Tablet - take 1 tablet by ORAL route every 6 hours As needed; 20 tablet. - Medication Reconciliation Form, Thank You Letter, Antibiotic Education, Prescription Opioid Use form. - Follow up: Private Physician; When: As needed; Reason: Recheck today's complaints, Re-evaluation by your physician. - Problem is new. - Symptoms have improved. Signatures: Dispatcher [employer] Madison Hawk RN RN aj1 Santy Forman MD MD rn Rodriguez, Tommie, RN RN tr5 Corrections: (The following items were deleted from the chart) 01:59 00:24 02/06/2019 00:24 Discharged to Home. Impression: Hemorrhagic ovarian cyst. tr5 Condition is Stable. Forms are Medication Reconciliation Form, Thank You Letter, Antibiotic Education, Prescription Opioid Use. Follow up: Private Physician; When: As needed; Reason: Recheck today's complaints, Re-evaluation by your physician. Problem is new. Symptoms have improved. rn
[2019-02-06] MEDS ORDERED: HYDROCODONE/APAP 10/325 TAB ONE (00:51)
--- NOTE | 2019-02-06 11:19 | RAD REPORT ---
EXAM DESCRIPTION: CT - Abdomen Pelvis W Contrast - 02/06/2019 4:55 am CLINICAL HISTORY: Right lower quadrant pain. COMPARISON: None. TECHNIQUE: CT scan of the abdomen and pelvis was performed with IV contrast. This exam was performed according to our departmental dose-optimization program, which includes automated exposure control, adjustment of the mA and/or kV according to patient size and/or use of iterative reconstruction techn ique. FINDINGS: The lung bases are clear. No pleural or pericardial effusions. There is no hiatal hernia. The liver, spleen, pancreas, gallbladder, adrenal glands, and kidneys are unremarkable. No urinary st ones are seen. There is a 4.3 cm slightly hyperdense cystic lesion in the left adnexa with trace free fluid. No small bowel obstruction. The appendix is normal caliber and air-filled. There is no evidence of di verticulitis. No intraperitoneal free air is identified The aorta is normal caliber. No acute bony findings are seen. There is no pathologic body wall hernia . IMPRESSION: 4.2 cm possible left ovarian hemorrhagic cyst with mild free fluid. Consider pelvic ultr asound for further evaluation, if clinically indicated. Electronically signed by: Fredi Phillip MD 02/05/2019 11:18 PM CDT Due to temporary technical issues with the PACS/Fluency reporting system, reports are being signed by the in house radiologist as a courtesy to ensure prompt reporting. The interpreting radiologist is f ully responsible for the content of the report.
== END 2019-02-06 01:59 | disposition home or self-care (01) ==
LOC: ER 21:33
DX: N83.209 Unspecified ovarian cyst, unspecified side (principal); Z88.2 Allergy status to sulfonamides; Z88.8 Allergy status to other drugs, medicaments and biological substances
CPT/HCPCS: 36415; 74177; 80048; 80076; 81003; 81025; 83690; 85025; 96374; 96375; 99284; J2405; J7030; Q9967